=== PATIENT | male | born 1945 ===

== ENCOUNTER 2023-04-26 11:21 | Outpatient (CLI) | payer OTHER | END 2023-04-26 11:28 | disposition home or self-care (01) | LOC: RAD 11:21 | PROVIDERS: ATTEND Orthopaedic Surgery | DX: R07.9 Chest pain, unspecified (principal) ==

== ENCOUNTER 2023-09-02 11:49 | Outpatient (CLI) | payer OTHER | END 2023-09-02 11:54 | disposition home or self-care (01) | LOC: RAD 11:49 | PROVIDERS: ATTEND Orthopaedic Surgery | DX: M25.561 Pain in right knee (principal); M25.562 Pain in left knee ==